=== PATIENT | female | born 1960 | race Two or more races ===

== ENCOUNTER 2024-07-24 06:35 | Day surgery (SDC) | payer OTHER ==
[2024-07-22 12:25] VITALS: BP 114/74
[2024-07-22 14:01] LABS: RH POSITIVE
[~2024-07-24] VITALS: Ht 165.1 cm; Wt 74.8 kg
[~2024-07-24 06:35] MED LIST: PROPRANOLOL HCL20 MG PO; ROSUVASTATIN CA20 MG PO; ZESTRIL10 M1 PO
[2024-07-24] MEDS ORDERED: CEFAZOLIN SODIUM 1,000 MG VIAL ONE (13:45)
[2024-07-24] MEDS ORDERED: POVIDONE-IODINE 118 ML BOTT TOP ONE (13:46)
[2024-07-24] MEDS ORDERED: METRONIDAZOLE/SODIUM CHLORIDE 500 MG/100 ML PIGGYBACK IV ONE (13:46)
[2024-07-24] MEDS ORDERED: HEMOSTATIC MATRIX WITH THROMBIN KIT TOP ONE (18:08)
[2024-07-24] MEDS ORDERED: SURGIFLO APPLICATOR 1 EACH APPL TOP ONE (18:08)
[2024-07-24] MEDS ORDERED: KETOROLAC TROMETHAMINE 30 MG VIAL IV STA (19:05)
[2024-07-24] MEDS ORDERED: ONDANSETRON HCL 2 MG/ML VIAL ONE (19:44)
[2024-07-24] MEDS ORDERED: MORPHINE SULFATE 4 MG/ML VIAL IV ONE (19:45)
[2024-07-24] MEDS ORDERED: ONDANSETRON HCL 2 MG/ML VIAL IV ONE (19:45)
[2024-07-24] MEDS ORDERED: KETOROLAC TROMETHAMINE 30 MG VIAL ONE (20:31)
== END 2024-07-24 21:30 | disposition home or self-care (01) ==
LOC: CIR.AMB 06:35
PROVIDERS: ATTEND Obstetrics & Gynecology Gynecologic Oncology
DX: D27.0 Benign neoplasm of right ovary (principal); D39.8 Neoplasm of uncertain behavior of other specified female genital organs; R59.0 Localized enlarged lymph nodes; Z91.013 Allergy to seafood; I10 Essential (primary) hypertension